=== PATIENT | female | born 1995 ===

== ENCOUNTER 2021-08-04 11:49 | Outpatient (CLI) | payer SELFPAY ==
[2021-08-04 13:25] VITALS: BP 113/71
--- NOTE | 2021-08-04 17:10 | Event Note ---
Date: 08/04/21 BPP 68 DEVANTE borderline Cat 1 FHT Not in labor DC home with labor precautions FUP on monday for repeat DEVANTE Wilfredo Barrett MD
[2021-08-04] MEDS ORDERED: MORPHINE 2 MG/1 ML INJ IM ONE (17:28)
--- NOTE | 2021-08-04 17:46 | Ultrasound Report ---
Limited obstetric ultrasound Biophysical profile INDICATION: well-being FINDINGS: No breathing movements seen. Biophysical profile 6 out of 8. heart rate 142. Single intrauterine in cephalic position. DEVANTE is decreased measuring 5.2 cm. IMPRESSION: 1. Abnormal biophysical profile measuring 6 out of 8. No breathing movement. 2. Low DEVANTE measuring 5.2 cm. Signer Name: Mayco Rangel MD Signed: 08/04/2021 5:42 PM Workstation Name: [id number]
== END 2021-08-04 17:43 | disposition home or self-care (01) ==
LOC: TRG 11:49 → APU 11:51 → TRG 17:43
PROVIDERS: ATTEND Obstetrics & Gynecology
DX: O36.8130 Decreased fetal movements, third trimester, not applicable or unspecified (principal); Z3A.38 38 weeks gestation of pregnancy
CPT/HCPCS: 76815; 76819; J2270

== ENCOUNTER 2021-08-06 10:09 | Outpatient (CLI) | payer SELFPAY ==
[2021-08-06 10:41] VITALS: BP 120/66
[2021-08-06 12:37] LABS: Bacteria,Urine 1+ /HPF (Negative); Mucus,Urine 3+ /HPF
[2021-08-06 12:49] LABS: Bilirubin,Urine NEG (Negative); Blood,Urine NEG (Negative); Color,Urine Amber (Yellow)
--- NOTE | 2021-08-06 13:28 | Ultrasound Report ---
ULTRASOUND OBSTETRIC LIMITED INDICATION / CLINICAL INFORMATION: r/o SROM. Clinical Gestational Age (GA) in weeks, days: 38 weeks 2 days TECHNIQUE: Transabdominal. COMPARISON: None available. FINDINGS: BREATHING MOVEMENT = 2 GROSS BODY MOVEMENT = 2 TONE = 2 QUALITATIVE AMNIOTIC FLUID VOLUME = 2 TOTAL BIOPHYSICAL SCORE = 8/8 Single cephalic fetus demonstrates heart rate of 143 bpm. Amniotic fluid index is 9.3 cm, within normal limits. IMPRESSION: 1. 8/8 score: Biophysical profile, normal. 2. Normal DEVANTE, 9.3 cm. Signer Name: Mansoor Ragsdale II, MD Signed: 08/06/2021 1:23 PM Workstation Name: [id number]
--- NOTE | 2021-08-06 13:29 | Ultrasound Report ---
ULTRASOUND OBSTETRIC LIMITED INDICATION / CLINICAL INFORMATION: r/o SROM. Clinical Gestational Age (GA) in weeks, days: 38 weeks 2 days TECHNIQUE: Transabdominal. COMPARISON: None available. FINDINGS: BREATHING MOVEMENT = 2 GROSS BODY MOVEMENT = 2 TONE = 2 QUALITATIVE AMNIOTIC FLUID VOLUME = 2 TOTAL BIOPHYSICAL SCORE = 8/8 Single cephalic fetus demonstrates heart rate of 143 bpm. Amniotic fluid index is 9.3 cm, within normal limits. IMPRESSION: 1. 8/8 score: Biophysical profile, normal. 2. Normal DEVANTE, 9.3 cm. Signer Name: Mansoor Ragsdale II, MD Signed: 08/06/2021 1:24 PM Workstation Name: [id number]
== END 2021-08-06 13:53 | disposition home or self-care (01) ==
LOC: TRG 10:09 → APU 10:10 → TRG 13:53
PROVIDERS: ATTEND Obstetrics & Gynecology
DX: O62.9 Abnormality of forces of labor, unspecified (principal); Z3A.38 38 weeks gestation of pregnancy
CPT/HCPCS: 59025; 76815; 76819; 81001; 87086

== ENCOUNTER 2021-08-14 00:43 | Inpatient (IN) | payer SELFPAY ==
[2021-08-14] MEDS ORDERED: NalbUPHINE 10 MG/1 ML INJ IV PRN ×2 (02:30→02:42)
[2021-08-14] MEDS ORDERED: ACETAMINOPHEN 325 MG TAB PO PRN ×2 (02:30→07:12)
[2021-08-14] MEDS ORDERED: fentaNYL 100 MCG/2 ML INJ IV PRN (02:30)
[2021-08-14] MEDS ORDERED: METOCLOPRAMIDE 10 MG/2 ML INJ IV ONE (02:33)
[2021-08-14] MEDS ORDERED: BICITRA ORAL LIQD 30ML PO ONE (02:33)
[2021-08-14] MEDS ORDERED: FAMOTIDINE 20 MG/2 ML INJ IV ONE ×2 (02:33→05:03)
[2021-08-14] MEDS ORDERED: PROMETHAZINE 25 MG RECT SUPP PR PRN (02:42)
[2021-08-14] MEDS ORDERED: diphenhydrAMINE 50 MG/ML VIAL IV PRN (02:42)
[2021-08-14] MEDS ORDERED: NALOXONE 0.4 MG/1 ML INJ IV PRN ×2 (02:42→07:12)
[2021-08-14] MEDS ORDERED: ONDANSETRON 4 MG/2 ML INJ IV PRN ×2 (02:42→07:12)
[2021-08-14] MEDS ORDERED: PROMETHAZINE 25 MG TAB PO PRN (02:42)
[2021-08-14] MEDS ORDERED: HYDROmorphone 1 MG/1 ML INJ IV PRN ×2 (02:42→04:55)
--- NOTE | 2021-08-14 02:44 | History and Physical Report ---
History of Present Illness Date of examination: 08/14/21 Date of admission: 08/14/2021 Chief complaint: Contractions History of present illness: 25 year old female presents to L&D with complaint of contractions. Patient received care at [facility] and she brings records with her. LMP 11/18/20. EDC 08/25/21. significant for the following: previous section in [employer] in 07/2019; false positive serologic test for syphilis; LSIL; overweight. labs are as follows: A+, antibody screen negative, rubella immune, hepatitis B surface antigen nonreactive, HIV negative, RPR positive (FTA negative), repeat RPR negative, gonorrhea negative, chlamydia negative, pap smear LSIL, NIPT negative, AFP negative, 1 hour sugar test 109, GBS negtive. Past History Past Medical History: other (overweight) Past Surgical History: section (previous C/S 07/2019 in [employer]) [facility] History: abnormal PAP smear, other (history of false positive serologic test for syphilis during this ). denies: chlamydia, gonorrhea, hepatitis B, hepatitis C, trichomonas Family/Genetic History: none Social history: lives with family, full code. denies: smoking, alcohol abuse, prescription drug abuse, IV drug use - Obstetrical History Expected Date of Delivery: 08/25/21 Actual Gestation: 38 Week(s) 3 Day(s) : 2 Para: 1 Hx # Term Pregnancies: 1 Number of Pregnancies: 0 Spontaneous Abortions: 0 Induced : 0 Number of Living Children: 1 Medications and Allergies Allergies Allergy/AdvReac Type Severity Reaction Status Date / Time No Known Allergies Allergy Unverified 08/11/21 17:52 Home Medications Medication Instructions Recorded Confirmed Last Taken Type Vit-Fe Fumar-FA [ 1 tab PO QDAY 08/11/21 08/11/21 Unknown History Vitamin] Active Meds: Active Medications Acetaminophen (Acetaminophen 325 Mg Tab) 650 mg PO Q4H PRN PRN Reason: Pain, Mild (1-3) Citric Acid/Sodium Citrate (Bicitra Oral Liqd 30ml) 30 ml PO ONCE ONE Stop: 08/14/21 02:34 Famotidine (Famotidine 20 Mg/2 Ml Inj) 20 mg IV ONCE ONE Stop: 08/14/21 02:34 Fentanyl (Fentanyl 100 Mcg/2 Ml Inj) 100 mcg IV Q2H PRN PRN Reason: Pain,Severe (7-10) LABOR PAIN Lactated Ringer's (Lactated Ringers) 1,000 mls @ 2,250 mls/hr IV PREOP ANASTASIA Stop: 08/15/21 03:12 Oxytocin/Sodium Chloride (Pitocin/Ns 30 Unit/500ml) 30 units in 500 mls @ 0 mls/hr IV TITR ANASTASIA; Protocol Cefazolin Sodium (Ancef/Sterile Water 2 Gm/20 Ml) 2 gm in 20 mls @ 80 mls/hr IV PREOP NR; Protocol Metoclopramide HCl (Metoclopramide 10 Mg/2 Ml Inj) 10 mg IV ONCE ONE Stop: 08/14/21 02:34 Nalbuphine HCl (Nalbuphine 10 Mg/1 Ml Inj) 10 mg IV Q2H PRN PRN Reason: Pain, Moderate (4-6) Review of Systems All systems: negative (contractions) - Vital Signs Vital signs: Vital Signs Pulse BP Pulse Ox 89 105/67 98 08/14/21 01:03 08/14/21 01:03 08/14/21 01:03 Temp Pulse Resp BP Pulse Ox 84 16 105/67 100 08/14/21 02:19 08/14/21 01:53 08/14/21 01:53 08/14/21 02:25 - Physical Exam Abdomen: Positive: normal appearance, soft. Negative: distention, tenderness, guarding, rigidity Genitourinary (Female): Positive: normal external genitalia, normal perenium. Negative: perineal/vulvar lesions Vagina: Positive: normal moisture Uterus: Positive: enlarged. Negative: tender Anus/Rectum: Positive: normal perianal skin Extremities: Negative: tenderness - Obstetrical FHR: category 1 Uterine Contraction Monitor Mode: External Cervical Dilatation: 3 (Exam per NBA Segura in triage) Cervical Effacement Percentage: 60 station: -3 Uterine Contraction Pattern: Regular Uterine Contraction Intensity: Moderate Results All other labs normal. Assessment and Plan A: at 38 weeks, 3 days gestation. Labor. Previous section. GBS negative. P: Admit. Called Dr. Cano re: patient; Dr. Cano states she is coming in to perform a section. Charge nurse and team notified.
[2021-08-14] MEDS ORDERED: LACTATED RINGERS 1,000 ML IV SCH (02:45)
[2021-08-14 02:56] LABS: Hematocrit 39.1 % (30.3-42.9); Hemoglobin 13.4 gm/dl (10.1-14.3); Mean Corpuscular HGB Conc 34 % (30-34); Mean Corpuscular Volume 88 fl (79-97); Platelet Count 281 K/mm3 (140-440); Red Blood Count 4.46 M/mm3 (3.65-5.03); Red Cell Distribution Width 13.3 % (13.2-15.2)
[2021-08-14] MEDS ORDERED: OXYTOCIN DRIP 30 UNITS/500 ML BAG IV SCH ×3 (03:00→08:00)
[2021-08-14] MEDS ORDERED: ceFAZolin/Water 2 GM/20 ML 2 GM/20 ML SYRINGE IV NR (03:00)
[2021-08-14] MEDS ORDERED: TERBUTALINE 1 MG/1 ML INJ SUB-Q PRN (03:38)
[2021-08-14] MEDS ORDERED: OXYTOCIN 10 UNIT/1 ML INJ IM PRN (03:38)
[2021-08-14] MEDS ORDERED: CARBOPROST TROMETHAMINE 250 MCG/1 ML INJ IM PRN (03:38)
[2021-08-14] MEDS ORDERED: ePHEDrine SULFATE 50 MG/1 ML INJ IV PRN ×2 (03:38)
[2021-08-14] MEDS ORDERED: MINERAL OIL 30 ML ORAL LIQD PO PRN (03:38)
[2021-08-14] MEDS ORDERED: METHYLERGONOVINE MALEATE 0.2 MG/ML VIAL IM PRN (03:38)
[2021-08-14] MEDS ORDERED: LACTATED RINGERS 250 ML IV SOLN IV ONE (03:38)
[2021-08-14] MEDS ORDERED: LOPERAMIDE 2 MG CAP PO PRN (03:38)
[2021-08-14] MEDS ORDERED: miSOPROStol 200 MCG TAB PR PRN (03:38)
[2021-08-14] MEDS ORDERED: LIDOCAINE (2%) 20 MG/1 ML VIAL 20 ML MDV INFILTRATI ONE (03:38)
[2021-08-14] MEDS ORDERED: NALOXONE 2 MG/2 ML INJ IV PRN (03:38)
[2021-08-14] MEDS: LACTATED RINGERS 1,000 ML IV SCH ×2 (03:52→17:30)
[2021-08-14] MEDS ORDERED: fentaNYL-BUPIV 2 MCG/ML-0.125% 200 MCG/100 ML BAG EPIDURAL SCH (04:00)
--- NOTE | 2021-08-14 04:09 | Anesthesia Consultation ---
Anesthesia Consult and Med Hx Date of service: 08/14/21 - Airway Anesthetic Teeth Evaluation: Good ROM Head & Neck: Adequate Mental/Hyoid Distance: Adequate Mallampati Class: Class II Intubation Access Assessment: Probably Good - Pulmonary Exam CTA: Yes - Cardiac Exam Cardiac Exam: RRR - Pre-Operative Health Status ASA Pre-Surgery Classification: ASA2 Proposed Anesthetic Plan: Epidural - Pulmonary Hx Smoking: No Hx Asthma: Yes Hx Sleep Apnea: No - Cardiovascular System Hx Hypertension: No Hx Heart Attack/AMI: No Hx Angina: No - Central Nervous System Hx Seizures: No Hx Psychiatric Problems: No - Gastrointestinal Hx Gastroesophageal Reflux Disease: No - Endocrine Hx Renal Disease: No Hx Liver Disease: No Hx Insulin Dependent Diabetes: No Hx Non-Insulin Dependent Diabetes: No Hx Hypothyroidism: No Hx Hyperthyroidism: No - Hematic Hx Anemia: No Hx Sickle Cell Disease: No - Other Systems Hx Alcohol Use: No Hx Cancer: No - Additional Comments Anesthesia Medical History Comments: previous c/s x1
--- NOTE | 2021-08-14 04:10 | Progress Note ---
Labor Epidural - Labor Epidural Start Time: 03:50 Stop Time: 04:03 Performed by:: MIRIAN ALFREDO Procedure: Patient is requesting epidural for labor and pain. H&P, labs were reviewed. Patient IDed, all questions and concerns were answered, and consent was signed. Timeout was performed at bedside. Patient in sitting position. Sterile prep and drape was performed. 3ml of 1% lidocaine skin wheal at L[3]- L [4]. 17- gauge Tuohy epidural needle was advanced to loss of resistance with air technique 7cm. Negative CSF negative blood. Epidural catheter advanced to [12] centimeters. [negative] Aspiration [negative] test dose. Sterile dressing applied. Patient tolerated procedure.
--- NOTE | 2021-08-14 04:47 | Event Note ---
Date: 08/14/21 pt evaluated after late decel seen. Pelvic unchanged /-1 and AROM done with meconium stained fluid. Pt now with recurrent late decel and charge nurse [place] notified and dry starch supervisor also notified because pt needs urgent section now. Pt already consented and aware of risks, benefits and alternatives.
--- NOTE | 2021-08-14 04:53 | Anesthesia Day of Surgery ---
Anesthesia Day of Surgery - Day of Surgery Patient Examined: Yes Patient H&P Reviewed: Yes Patient is NPO: Yes Beta Blockers: No Cardiac Clearance: No Pulmonary Clearance: No Ovidio's Test: N/A
[2021-08-14] MEDS ORDERED: PHENYLEPHRINE/NS 1,000 MCG/10 ML SYRINGE (OR USE) IV ONE (05:01)
[2021-08-14] MEDS ORDERED: ONDANSETRON 4 MG/2 ML INJ ONE (05:01)
[2021-08-14] MEDS ORDERED: LIDOCAINE 2%/EPINEPHRINE 1:200,000 VIAL (20 ML) INFILTRATI ONE (05:01)
[2021-08-14] MEDS ORDERED: METOCLOPRAMIDE 10 MG/2 ML INJ ONE (05:02)
[2021-08-14] MEDS ORDERED: BICITRA ORAL LIQD 30ML ONE (05:02)
[2021-08-14] MEDS ORDERED: SODIUM CHLORIDE 0.9% IRR 1,500 ML BOTTLE IR ONE (05:37)
[2021-08-14] MEDS ORDERED: WATER FOR IRRIG STERILE 1,500 ML BOTTLE IR ONE (05:37)
[2021-08-14] MEDS ORDERED: LANOLIN/ZINC/DIMETHICONE (LANSINOH) 7 GM TP PRN (07:12)
[2021-08-14] MEDS ORDERED: WITCH HAZEL/ GLYCERIN PAD TP PRN (07:12)
[2021-08-14] MEDS ORDERED: MORPHINE 4 MG/1 ML INJ IV PRN (07:12)
--- NOTE | 2021-08-14 07:26 | Procedure Note ---
OB Delivery Note - Delivery Date of Delivery: 08/14/21 Surgeon: VEDA COLLIER Estimated blood loss: other (300) - Section Preop diagnosis: repeat , nonreassuring FHR tracing Postop diagnosis: same section procedure: repeat low transverse Complications: none Narrative: Date: 08/14/21 Surgeon: Veda Collier MD Preop Dx: IUP a 39.0wks, previous section undocumented scar, meconium stained fluid, recurrent late decel remote from delivery Postop Dx: same Procedure : Repeat Low Transverse Section Anesthesia: epidural Intake: 1400cc Output: 250cc clear urine EBL: 300cc After the risks, benefits and alternatives of procedure discussed, patient signed consents and was taken to the operating room. Pt was already with epidural anesthesia and was given additional dose. After same was adequate, patient was prepped and draped in the usual sterile fashion. Gallegos catheter in place and draining clear urine. Pt was given prophylactic antibiotic per protocol and time out was done Pfannenstiel skin incision was made thru previous scar and same taken sharply to the fascia and the incision extended using electrocautery. Superior edge of the fascia was grasped with fabio clamps and the rectus muscle using blunt dissection and also using electrocautery. Lower portion of the fascia also using electrocautery. Rectus muscle in the midline and Peritoneal cavity entered sharply and extended with good visualization of the bladder that was at a high level. Pa retractor placed. The bladder flap was created sharply using metzenbaum scissors. Lower uterine segment then entered transversely and amniotic sac entered using allys clamps. Uterine incision extended using bandage scissors. delivered, bulb suctioned, cord clamped and baby handed to waiting pediatricians. Placenta then delivered completely and uterine cavity cleared of all clots and debri. The uterus was not exteriorized and closed in 2 layers using 0-monocryl] suture in a running locked fashion and then an additional layer of imbrication suture. Excellent hemostasis noted. The gutters were cleared of clots and debri and anterior peritoneum with scar and rectus muscle closed using 0-vicryl suture reapproximated in a continuous fashion. Rectus fascia closed with 0-vicryl suture in a continuous fashion and subcutaneous tissue copiously irrigated with normal saline and re-approximated using 3-0 vicryl suture. Excellent hemostasis remains. The skin was closed with 4-0 monocryl suture Dermabond placed to left side of the inicison and steristrips placed with pressure dressing. Sponge, lap, instrument and needle counts x2 were normal. Patient tolerated the procedure well and was taken to recovery room stable. Findings: Viable female infant, APGARS 8/9 and weight 3480g. Normal uterus, tubes and ovaries bilaterally - Infant A at 1 minute: 8 at 5 minutes: 9 Infant Gender: Female (meconium stained fluid, wt 3480g)
[2021-08-14] MEDS ORDERED: SIMETHICONE 80 MG CHEW TAB PO PRN (08:00)
[2021-08-14] MEDS ORDERED: HYDROCORTISONE 25 MG RECTAL SUPP PR PRN (10:00)
[2021-08-14] MEDS: PRENATAL VIT27-FE FUMARATE-FOLIC ACID VIT TAB PO SCH (10:52)
[2021-08-14] MEDS: FERROUS SULFATE 325 MG TAB PO SCH (10:52)
[2021-08-14] MEDS: oxyCODONE /ACETAMINOPHEN 5-325MG TAB PO PRN ×2 (17:23→21:00)
[2021-08-14 21:46] LABS: Basophils % (Auto) 0.1 % (0.0-1.8); Eosinophils # (Auto) 0.1 K/mm3 (0.0-0.4); Eosinophils % (Auto) 0.5 % (0.0-4.3); Hematocrit 35.8 % (30.3-42.9); Hemoglobin 12.6 gm/dl (10.1-14.3); Lymphocytes # (Auto) 2.8 K/mm3 (1.2-5.4); Lymphocytes % (Auto) 18.5 % (13.4-35.0); Mean Corpuscular HGB Conc 35 % (30-34); Mean Corpuscular Volume 89 fl (79-97); Monocytes # (Auto) 0.9 K/mm3 (0.0-0.8); Monocytes % (Auto) 6.2 % (0.0-7.3); Platelet Count 224 K/mm3 (140-440); Red Blood Count 4.02 M/mm3 (3.65-5.03); Red Cell Distribution Width 13.7 % (13.2-15.2)
[2021-08-14] MEDS ORDERED: MAGNESIUM HYDROXIDE (MOM) ORAL LIQD UDC PO PRN (22:00)
[2021-08-14] MEDS ORDERED: SENNOSIDES 8.6 MG TAB PO PRN (22:00)
[2021-08-15] MEDS: oxyCODONE /ACETAMINOPHEN 5-325MG TAB PO PRN ×3 (04:42→16:10)
[2021-08-15] MEDS: IBUPROFEN 600 MG TAB PO PRN ×2 (07:51→17:52)
--- NOTE | 2021-08-15 10:01 | Post Anesthesia Evaluation ---
- Post Anesthesia Evaluation Patient Participated: Yes Airway Patent: Yes Stable Respiratory Function: Yes Nausea/Vomiting: No Temp > 96.8F: Yes Pain Manageable: Yes Adequeate Hydration: Yes Anesthesia Complications: No Block Receding Appropriately: Yes Patient on Ventilator: No
[2021-08-15] MEDS: PRENATAL VIT27-FE FUMARATE-FOLIC ACID VIT TAB PO SCH (10:17)
[2021-08-15] MEDS: FERROUS SULFATE 325 MG TAB PO SCH (10:17)
--- NOTE | 2021-08-15 13:51 | Progress Note ---
Assessment and Plan A: /postop day 1 S/P repeat LTCS. P: Encouraged patient to ambulate. Repeat CBC ordered. Continue routine /postop care. Subjective - Subjective Date of service: 08/15/21 Principal diagnosis: day 1 S/P repeat LTCS Patient reports: appetite normal, voiding normally, pain well controlled, flatus, ambulating normally, no dizzy ambulation, no nauseated : doing well Objective - Vital Signs Latest vital signs: Vital Signs Temp Pulse Resp BP Pulse Ox Pulse Ox 08/15/21 09:05 97.6 F 85 18 92/62 96 08/15/21 08:00 97 08/15/21 01:18 98.2 F 79 20 95/56 97 08/14/21 20:55 100 08/14/21 16:31 98.1 F 81 18 101/63 95 Intake and Output 08/14/21 08/15/21 08/15/21 23:59 07:59 15:59 Intake Total 460 240 Output Total 2950 Balance -2490 240 Intake: IV 100 ceFAZolin 2 GM In NaCl 0. 100 9% 100 ml @ 200 mls/hr IV Q8H [facility] Rx#:[id number] Oral 240 Intake, Free Water 360 Output: Urine 2950 Indwelling Catheter 2150 Void 800 Other: Total, Intake Amount 240 Total, Output Amount 500 # Voids Void 1 1 - Exam Cardiovascular: Present: Regular rate Lungs: Present: Clear to auscultation Abdomen: Present: normal appearance, soft, normal bowel sounds. Absent: distention, tenderness, guarding, rigidity Uterus: Present: normal, firm, fundal height below umbilicus (fundus firm and midline at 1 FB below umbilicus). Absent: bogginess, tenderness Extremities: Absent: tenderness Incision: Present: dressed - Labs Labs: Abnormal lab results 08/14/21 Range/Units 19:54 WBC 15.0 H (4.5-11.0) K/mm3 MCHC 35 H (30-34) % [place] # (Auto) 0.9 H (0.0-0.8) K/mm3 Seg Neutrophils % 74.7 H (40.0-70.0) % Seg Neutrophils # 11.2 H (1.8-7.7) K/mm3
[2021-08-15 17:43] LABS: Basophils % (Auto) 0.2 % (0.0-1.8); Eosinophils # (Auto) 0.2 K/mm3 (0.0-0.4); Eosinophils % (Auto) 1.6 % (0.0-4.3); Hematocrit 34.7 % (30.3-42.9); Hemoglobin 12.2 gm/dl (10.1-14.3); Lymphocytes # (Auto) 2.6 K/mm3 (1.2-5.4); Lymphocytes % (Auto) 21.6 % (13.4-35.0); Mean Corpuscular HGB Conc 35 % (30-34); Mean Corpuscular Volume 89 fl (79-97); Monocytes # (Auto) 0.9 K/mm3 (0.0-0.8); Monocytes % (Auto) 7.6 % (0.0-7.3); Platelet Count 235 K/mm3 (140-440); Red Blood Count 3.89 M/mm3 (3.65-5.03); Red Cell Distribution Width 13.9 % (13.2-15.2)
[2021-08-16] MEDS ORDERED: TETANUS,DIPH,PERTUSS(ACELL) VACCINE 0.5 ML SYRINGE IM ONE (06:00)
[2021-08-16] MEDS: IBUPROFEN 600 MG TAB PO PRN (06:30)
--- NOTE | 2021-08-16 09:58 | Progress Note ---
Assessment and Plan A:S/P repeat LTCS P: D/C home today Subjective - Subjective Date of service: 08/16/21 Principal diagnosis: day 2 S/P repeat LTCS Patient reports: appetite normal, voiding normally, pain well controlled, ambulating normally : doing well, bottle feeding Objective - Vital Signs Latest vital signs: Vital Signs Temp Pulse Resp BP Pulse Ox Pulse Ox 08/16/21 07:39 98.0 F 85 18 95/61 98 08/16/21 00:35 98.0 F 89 18 101/67 98 08/15/21 20:12 97 08/15/21 17:36 97.8 F 82 18 106/72 97 Intake and Output 08/15/21 08/16/21 08/16/21 22:59 06:59 14:59 Intake Total 840 360 Balance 840 360 Intake: Oral 480 Intake, Free Water 360 120 Tube Feeding 240 Other: Total, Intake Amount 480 240 # Voids Void 3 1 - Exam Breasts: Present: normal Abdomen: Present: normal appearance, soft, normal bowel sounds Vulva: both: normal Uterus: Present: normal, firm, fundal height below umbilicus Extremities: Present: normal Incision: Present: normal, dry, intact - Labs Labs: Abnormal lab results 08/15/21 Range/Units 17:01 WBC 11.9 H (4.5-11.0) K/mm3 MCHC 35 H (30-34) % [place] % (Auto) 7.6 H (0.0-7.3) % [place] # (Auto) 0.9 H (0.0-0.8) K/mm3 Seg Neutrophils # 8.2 H (1.8-7.7) K/mm3
--- NOTE | 2021-08-16 10:03 | Discharge Summary ---
Providers - Providers Date of Admission: 08/14/21 02:30 Date of discharge: 08/16/21 Attending physician: SHRUTHI COLLIER Primary care physician: SHRUTHI COLLIER Hospitalization Reason for admission: section Delivery: Procedure: repeat low transverse Episiotomy: none Laceration: none Incision: normal, dry, intact Other procedures: none complications: none Discharge diagnosis: IUP at term delivered baby: female Hospital course: Pt was admitted to [facility] for a repeat LTCS. She had no pp complications and was d/c'd home. See H&P, delivery summary, and pp notes. Condition at discharge: Stable Disposition: HOME / SELF CARE / HOMELESS Plan - Discharge Medications Prescriptions: Ibuprofen [Motrin] 800 mg PO Q8HR PRN 21 Days #30 tablet PRN Reason: Pain, Moderate (4-6) oxyCODONE /ACETAMINOPHEN [Percocet 5/325] 1 tab PO Q4HR PRN 21 Days #30 tab PRN Reason: Pain , Severe (7-10) - Provider Discharge Summary Additional instructions: [] Smoking cessation referral if applicable(refer to patient education folder for contact #) [] Refer to [facility]'s [facility] Booklet Call your doctor immediately for: * Fever > 100.5 * Heavy vaginal bleeding ( >1 pad per hour) * Severe persistent headache * Shortness of breath * Reddened, hot, painful area to leg or breast * Drainage or odor from incision. * Keep incision clean and dry at all times and follow doctor's instructions regarding bathing/showering - Follow up plan Follow up: SHRUTHI COLLIER MD [Primary Care Provider] - 7 Days
[2021-08-16] MEDS: PRENATAL VIT27-FE FUMARATE-FOLIC ACID VIT TAB PO SCH (11:19)
[2021-08-16] MEDS: FERROUS SULFATE 325 MG TAB PO SCH (11:19)
[2021-08-16 16:16] VITALS: BP 108/75
[2021-08-16] MEDS ORDERED: FLU VACC QUAD 2021-22(6MOS UP)/PF 60 MCG/0.5 ML SYRINGE IM ONE (16:30)
== END 2021-08-16 16:36 | disposition home or self-care (01) | DRG 788 ==
LOC: TRG 00:43 → APU 00:44 → TRG 02:30 → LD 02:30 → OB 09:04
PROVIDERS: ADMIT Obstetrics & Gynecology; ATTEND Obstetrics & Gynecology
PROC: 10D00Z1 Extraction of Products of Conception, Low, Open Approach (ICD-10-PCS; principal; 2021-08-14)
PROC: 3E0234Z Introduction of Serum, Toxoid and Vaccine into Muscle, Percutaneous Approach (ICD-10-PCS; 2021-08-16)
DX: O77.0 Labor and delivery complicated by meconium in amniotic fluid (principal); O34.211 Maternal care for low transverse scar from previous cesarean delivery; Z20.822 Contact with and (suspected) exposure to COVID-19; Z3A.38 38 weeks gestation of pregnancy; Z37.0 Single live birth; Z23 Encounter for immunization
CPT/HCPCS: 36415; 59025; 84112; 85025; 85027; 86592; 86850; 86900; 86901; 88305; 90471; 90686; 90715; G0378; J3490; J0690; J1170; J2270; J2370; J2405; J2765; J7120; U0003